=== PATIENT | female | born 1985 | race Caucasian/White ===

== ENCOUNTER 2016-03-26 11:30 | Outpatient (RCR) | payer OTHER ==
[~2016-03-26 11:30] MED LIST: ANTIVERT 25MG25 MG PO; MOTRIN 600600 MG/TAB PO; PERCOCET 325 MG1 TA2 PO; PHENERGAN 25 TA25 MG PO; PRENATAL1 TA7 PO; PROTONIX20 MG PO; TYLENOL 325MG325 MG PO; ZOFRAN ODT4 MG PO
== END 2016-05-04 12:49 | disposition home or self-care (01) ==
LOC: WSPT 11:30
DX: M76.31 Iliotibial band syndrome, right leg (principal); M70.72 Other bursitis of hip, left hip; M70.71 Other bursitis of hip, right hip